=== PATIENT | male | born 1940 | race Caucasian/White ===

== ENCOUNTER 2024-11-27 21:35 | Emergency (ER) | payer MEDICARE, OTHER, SELFPAY ==
[2024-11-27 21:38] VITALS: BP 117/60
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
[2024-11-28 00:20] VITALS: BP 126/70
== END 2024-11-28 02:50 ==
LOC: EMR 21:35
PROVIDERS: EMERGENCY PHYSICIAN Emergency Medicine; FAMILY PHYSICIAN Internal Medicine Geriatric Medicine
DX: R45.1 Restlessness and agitation (principal); F03.918 Unspecified dementia, unspecified severity, with other behavioral disturbance
CPT/HCPCS: 99283